=== PATIENT | female | born 1955 | race Caucasian/White ===

== ENCOUNTER 2017-05-27 11:23 | Emergency (ER) | payer MEDICAID ==
[~2017-05-27] VITALS: Ht 162.6 cm; Wt 64.0 kg
[2017-05-27 11:35] VITALS: Ht 162.6 cm; Wt 64.0 kg
--- NOTE | 2017-05-27 13:10 | ERD ---
ER Documentation Chief Complaint Chief Complaint NECK & SHOULDER PAIN X3 WKS, DENIES INJURY HPI 61-year-old female otherwise healthy complains of bilateral neck pain radiating to the shoulders and complaining of right shoulder pain as well for the last 3 weeks. She denies trauma or any twisting injury and states that she woke up with the pain one morning. She describes as stiff, sharp and the pain goes to her left side of the neck, left side of the shoulder as well as the right shoulder. Pain is worse when she moves her neck, as well as with shoulder abduction, it is described as sharp. She has not had any fevers or chills or swelling to the extremities. She denies chest pain or shortness of breath. ROS All systems reviewed and are negative except as per history of present illness. Medications Home Meds Active Scripts Acetaminophen* (Tylophen*) 500 Mg Capsule, 1 CAP PO Q6H Y for PAIN AND OR ELEVATED TEMP, #20 CAP Prov:HARSHA HILLS PA-C 05/27/17 PMhx/Soc Medical and Surgical Hx: pt denies Medical Hx Hx Alcohol Use: No Hx Substance Use: No Hx Tobacco Use: No Physical Exam Vitals Vital Signs Date Time Temp Pulse Resp B/P Pulse Ox O2 Delivery O2 Flow Rate FiO2 05/27/17 11:35 97.9 71 18 109/68 98 Physical Exam General: Well-developed, well-nourished. The patient appears in no acute distress. HEENT: Head is normocephalic, atraumatic. No scleral icterus. Neck: Supple. Nontender. Midline tenderness or crepitus. Full range of motion. Lungs: Clear to auscultation. Normal air movement. Heart: Regular rate and rhythm. S1 and S2 are normal. No murmurs, gallops, or rubs. Abdomen: Soft, nontender, nondistended. Bowel sounds are normoactive. Extremities: No bony deformities to the bilateral shoulders, right shoulder pain is reproduced with abduction. No swelling, radial pulses 2+ bilaterally Neurologic: Alert and oriented 3. No focal deficits. Skin: Normal turgor. No rash or lesions. Results 24 hrs 12-lead EKG(interpreted by supervising physician): Dr. West Rate/Rhythm: Normal Sinus Rhythm, rate of 63 QRS, ST, T-waves: No changes consistent w/ acute ischemia, no intervals, no dysrhythmias, no ectopy Impression: No evidence of ischemia or arrhythmia DIAGNOSTIC IMAGING REPORT Patient: EVANS ALONSO : 1955 Age: 61 Sex: F MR #: [id number] DOS: 05/27/17 1258 Ordering MD: HARSHA HILLS PA-C Location: [facility] Room/Bed: PROCEDURE: XR cervical spine CLINICAL INDICATION: Neck pain 3 weeks TECHNIQUE: 3 views of the cervical spine obtained COMPARISON: None available FINDINGS: There is generalized osteopenia without fracture visualized. There is gross preservation of the cervical lordosis with grossly intact alignment. Vertebral bodies are maintained. There is mild to moderate disc space narrowing at C5-6 with uncovertebral osteophytes seen at this level. Prevertebral soft tissues are unremarkable. IMPRESSION: Cervical spondylosis at C5-6 as described above. Osteopenia. RPTAT: VV .Ernie Vu MD, MD Date Time Electronically viewed and signed by .Ernie Vu MD, MD on 05/27/2017 14:13 .O/ CC: HARSHA HILLS PA-C Procedures/MDM 61-year-old female presents with bilateral neck pain, she has radiation of pain to her shoulders, also symptoms of rotator cuff tendinitis of the right shoulder. I doubt fracture, subluxation, meningitis, acute coronary syndrome. X-ray of the cervical spine confirmed cervical spondylosis seen on C5 and C6. Patient has a normal EKG, this patient symptoms do not seem related to an anginal process, a or acute coronary syndrome. Pain in the right shoulder is reproduced, is most likely tendinitis related. Departure Diagnosis: Primary Impression: Cervical spondylosis Additional Impression: Shoulder pain Condition: Good HARSHA HILLS PA-C May 27, 2017 13:09
--- NOTE | 2017-05-27 14:14 | RADRPT ---
PROCEDURE: XR cervical spine CLINICAL INDICATION: Neck pain 3 weeks TECHNIQUE: 3 views of the cervical spine obtained COMPARISON: None available FINDINGS: There is generalized osteopenia without fracture visualized. There is gross preservation of the cerv ical lordosis with grossly intact alignment. Vertebral bodies are maintained. There is mild to moder ate disc space narrowing at C5-6 with uncovertebral osteophytes seen at this level. Prevertebral sof t tissues are unremarkable. IMPRESSION: Cervical spondylosis at C5-6 as described above. Osteopenia. RPTAT: VV .Ernie Vu MD, MD Date Time Electronically viewed and signed by .Ernie Vu MD, on 05/27/2017 14:13 .O/
[2017-05-27] MEDS ORDERED: ACET500C5 PO (14:20)
== END 2017-05-27 14:48 | disposition home or self-care (01) ==
LOC: FTE 11:23
DX: M47.812 Spondylosis without myelopathy or radiculopathy, cervical region (principal); M25.511 Pain in right shoulder
CPT/HCPCS: 72040; 93005; Z7502